=== PATIENT | female | born 1955 | race Caucasian/White ===

== ENCOUNTER 2021-11-20 13:39 | Emergency (ER) | payer MEDICARE, BC ==
[2021-11-20 14:05] VITALS: PULSE 65
[2021-11-20] MEDS: Morphine 4 MG/ML Syringe IVPUSH ONE ×2 (14:06→16:06)
[2021-11-20] MEDS: Sodium Chloride 0.9% 10 ML Syringe FLUSH PRN (14:10)
[2021-11-20 14:29] LABS: ANION GAP 11.6 mmol/L (5-15)
[2021-11-20 15:31] VITALS: BP 102/63
[2021-11-20] MEDS: Morphine 4 MG/ML Syringe IM ONE (15:55)
== END 2021-11-20 16:21 | disposition home or self-care (01) ==
LOC: VM.ED 13:39
DX: S20.212A Contusion of left front wall of thorax, initial encounter (principal); S09.90XA Unspecified injury of head, initial encounter; I10 Essential (primary) hypertension; E03.9 Hypothyroidism, unspecified; E78.00 Pure hypercholesterolemia, unspecified; Z79.899 Other long term (current) drug therapy; Z88.5 Allergy status to narcotic agent; Z88.1 Allergy status to other antibiotic agents; Z88.0 Allergy status to penicillin; Z88.8 Allergy status to other drugs, medicaments and biological substances; W18.39XA Other fall on same level, initial encounter
CPT/HCPCS: 36415; 70450; 71100-LT; 73030-LT; 80053; 85025; 85610; 85730; 96372; 96374; 99284; 99285-25; J2270; J3490